=== PATIENT | male | born 1985 | race Caucasian/White ===

== ENCOUNTER 2021-04-22 18:39 | Emergency (ER) | payer SELFPAY ==
[2021-04-22] MEDS ORDERED: Sodium Chloride 0.9% 10 ML Syringe FLUSH PRN (19:15)
--- NOTE | 2021-04-22 19:30 | EDM.PDOC ---
ED HPI GENERAL MEDICAL PROBLEM - General Chief Complaint: General Stated Complaint: STOMACHE Time Seen by Provider: 04/22/21 19:10 Source of Information: Reports: Patient History Limitations: Reports: No Limitations - History of Present Illness INITIAL COMMENTS - FREE TEXT/NARRATIVE: 25-year-old male presents to the emergency room with complaints of emboli because pain for about 24 hours. Pain is been constant he only rates it a 2 out of 10. He has no referral of pain. Reports this more of a pinching type of pain. Not been experiencing any fever or chills no anorexia. No urinary or bowel problems. No nausea vomiting, diarrhea or constipation no complaints. He was concerned that this may be an appendicitis and thought he should come in. Is nontoxic-appearing he is well no acute distress. Onset Date: 04/21/21 Duration: Hour(s): (24), Constant Location: Reports: Abdomen (Umbilicus) Quality: Reports: Sharp (Pinching type pain) Severity: Mild Improves with: Reports: None Worsens with: Reports: None Associated Symptoms: Reports: No Other Symptoms Abdomen Pain Score (Numeric/FACES): 2 - Related Data Allergies Allergy/AdvReac Type Severity Reaction Status Date / Time No Known Drug Allergies Allergy Cannot Verified 04/22/21 19:08 Remember Home Meds: Home Meds . [No Known Home Meds] 04/22/21 [History] Social & Family History - Tobacco Use Tobacco Use Status *Q: Current Every Day Tobacco User Years of Tobacco use: 11 Packs/Tins Daily: 0.5 - Caffeine Use Caffeine Use: Reports: Coffee - Recreational Drug Use Recreational Drug Use: No ED ROS GENERAL - Review of Systems Review Of Systems: See Below Constitutional: Denies: Fever, Chills, Night Sweats, Decreased Appetite HEENT: Reports: No Symptoms Respiratory: Reports: No Symptoms Cardiovascular: Reports: No Symptoms Endocrine: Reports: No Symptoms GI/Abdominal: Reports: Abdominal Pain. Denies: Anorexia, Constipation, Diarrhea, Nausea, Vomiting : Reports: No Symptoms Musculoskeletal: Reports: No Symptoms Skin: Reports: No Symptoms Neurological: Reports: No Symptoms Psychiatric: Reports: No Symptoms Hematologic/Lymphatic: Reports: No Symptoms Immunologic: Reports: No Symptoms ED EXAM, GENERAL - Physical Exam Exam: See Below Exam Limited By: No Limitations General Appearance: Alert, WD/WN, No Apparent Distress Eye Exam: Bilateral Eye: EOMI, PERRL (Pupils are equal round) Ears: Hearing Grossly Normal Nose: Normal Inspection Throat/Mouth: Normal Inspection, Normal Voice Head: Atraumatic, Normocephalic Neck: Normal Inspection, Supple. No: Lymphadenopathy (L), Lymphadenopathy (R) Respiratory/Chest: No Respiratory Distress, Lungs Clear, Normal Breath Sounds, No Accessory Muscle Use Cardiovascular: Regular Rate, Rhythm, No Murmur GI/Abdominal: Normal Bowel Sounds, Soft, Tender (Umbilicus). No: No Organomegaly, No Distention, Distended, Guarding, Rigid Back Exam: Normal Inspection, Full Range of Motion Extremities: Normal Inspection, Normal Range of Motion, Non-Tender, No Pedal Edema Neurological: Alert, Oriented, No Motor/Sensory Deficits Psychiatric: Normal Affect, Normal Mood Skin Exam: Warm, Dry, Intact, Normal Color, No Rash Lymphatic: No Adenopathy Course - Vital Signs Last Recorded V/S: Last Vital Signs Temp 98.7 F 04/22/21 19:02 Pulse 78 04/22/21 19:02 Resp 18 04/22/21 19:02 BP 137/80 04/22/21 19:02 Pulse Ox 98 04/22/21 19:02 - Orders/Labs/Meds Orders: Active Orders 24 hr Category Date Time Status Peripheral IV Care [RC] . DIRECTED Care 04/22/21 19:15 Active Sodium Chloride 0.9% [Normal Saline] 50 ml Med 04/22/21 20:00 Active IV ASDIRECTED Sodium Chloride 0.9% [Saline Flush] Med 04/22/21 19:15 Active 10 ml FLUSH Q8HR PRN Peripheral IV Insertion Adult [OM.PC] Routine Oth 04/22/21 19:15 Ordered Medication Orders Sodium Chloride (Normal Saline) 50 mls @ 200 mls/min IV ASDIRECTED SEBAS Last Admin: 04/22/21 20:13 Dose: 200 mls/min Documented by: KARMA Sodium Chloride (Sodium Chloride 0.9% 10 Ml Syringe) 10 ml FLUSH Q8HR PRN PRN Reason: keep vein open Last Admin: 04/22/21 19:28 Dose: 10 ml Documented by: CHARLI Labs: Laboratory Tests 04/22/21 04/22/21 Range/Units 19:25 19:25 WBC 7.66 (5.00-10.00) 10^3/uL RBC 4.91 (4.50-6.00) 10^6/uL Hgb 15.4 (13.0-17.0) g/dL Hct 45.2 (40.0-52.0) % MCV 92.1 H (82.0-92.0) fL MCH 31.4 H (27.0-31.0) pg MCHC 34.1 (32.0-36.0) g/dL RDW 13.8 (11.5-14.5) % Plt Count 280 (150-400) 10^3/uL MPV 9.2 (7.4-10.4) fL Immature Gran % (Auto) 0.1 (0.0-5.0) % Neut % (Auto) 50.2 (50.0-70.0) % Lymph % (Auto) 41.3 H (20.0-40.0) % [place] % (Auto) 7.4 (2.0-8.0) % Eos % (Auto) 0.9 L (1.0-3.0) % Baso % (Auto) 0.1 (0.0-1.0) % Neut # (Auto) 3.84 (2.50-7.00) 10^3/uL Lymph # (Auto) 3.16 (1.00-4.00) 10^3/uL [place] # (Auto) 0.57 (0.10-0.80) 10^3/uL Eos # (Auto) 0.07 L (0.10-0.30) 10^3/uL Baso # (Auto) 0.01 (0.00-0.10) 10^3/uL Immature Gran # (Auto) 0.01 (0.00-0.50) 10^3/uL Sodium 141 (136-145) mmol/L Potassium 3.7 (3.5-5.1) mmol/L Chloride 103 (98-107) mmol/L Carbon Dioxide 24.5 (21.0-32.0) mmol/L Anion Gap 17.2 H (5-15) mmol/L BUN 20 H (7-18) mg/dL Creatinine 0.95 (0.51-1.17) mg/dL Est Cr Clr Drug Dosing 113.13 mL/min Estimated GFR (MDRD) > 60 mL/min Glucose 90 (70-140) mg/dL Calcium 9.2 (8.7-10.3) mg/dL Total Bilirubin 0.4 (0.2-1.0) mg/dL AST 18 (15-37) U/L ALT 28 (14-63) U/L Alkaline Phosphatase 71 (46-116) U/L Total Protein 7.6 (6.4-8.2) g/dL Albumin 4.41 (3.40-5.00) g/dL Lipase 117 (73-393) U/L Meds: Medications Generic Name Dose Route Start Last Admin Trade Name Freq PRN Reason Stop Dose Admin Sodium Chloride 50 mls @ 200 mls/min 04/22/21 20:00 04/22/21 20:13 Normal Saline IV 200 mls/min ASDIRECTED SEBAS Administration Sodium Chloride 10 ml 04/22/21 19:15 04/22/21 19:28 Sodium Chloride 0.9% 10 Ml Syringe FLUSH 10 ml Q8HR PRN Administration keep vein open Discontinued Medications Generic Name Dose Route Start Last Admin Trade Name Freq PRN Reason Stop Dose Admin Iopamidol 75 ml 04/22/21 19:56 04/22/21 20:13 Iopamidol 755 Mg/Ml 75 Ml Bottle IVPUSH 04/22/21 19:57 75 ml ONETIME ONE Administration - Radiology Interpretation Free Text/Narrative:: CT abdomen pelvis with IV contrast Findings: No evidence of appendicitis. The liver and spleen are unremarkable. Kidneys and adrenals show no abnormality. Aorta pancreas are within normal limits. There is no bowel distention. There is no bowel wall thickening either. There is no free fluid air or free air. There is no adenopathy. The pelvis shows no mass, free fluid, abscess, inflammatory change, or adenopathy. Impression: No acute process. Departure - Departure Time of Disposition: 21:48 Disposition: Home, Self-Care 01 Condition: Good Clinical Impression: Abdominal pain Qualifiers: Abdominal location: periumbilical Qualified Code(s): R10.33 - Periumbilical pain - Discharge Information Instructions: Abdominal Pain, Adult Referrals: PCP,None [Primary Care Provider] - Forms: ED Department Discharge Care Plan Goals: 1. Encourage plenty of hydration water. 2. Tylenol or ibuprofen for any pain or discomfort. 3. Follow up with your primary care in a week if symptoms are not improving return back to the emergency room if your abdominal pain becomes severe onset. 4. Your lab work today looked unremarkable. 5. CT scan is negative for acute abdominal findings no acute appendicitis no cholecystitis. Sepsis Event Note (ED) - Evaluation Sepsis Screening Result: No Definite Risk - Focused Exam Vital Signs: Vital Signs Temp Pulse Resp BP Pulse Ox 04/22/21 19:02 98.7 F 78 18 137/80 98 - My Orders Last 24 Hours: My Active Orders 04/22/21 19:15 Peripheral IV Care [RC] . DIRECTED Sodium Chloride 0.9% [Saline Flush] 10 ml FLUSH Q8HR PRN Peripheral IV Insertion Adult [OM.PC] Routine 04/22/21 20:00 Sodium Chloride 0.9% [Normal Saline] 50 ml IV ASDIRECTED - Assessment/Plan Last 24 Hours: My Active Orders 04/22/21 19:15 Peripheral IV Care [RC] . DIRECTED Sodium Chloride 0.9% [Saline Flush] 10 ml FLUSH Q8HR PRN Peripheral IV Insertion Adult [OM.PC] Routine 04/22/21 20:00 Sodium Chloride 0.9% [Normal Saline] 50 ml IV ASDIRECTED Assessment:: Abdominal pain Plan: 1. Encourage plenty of hydration water. 2. Tylenol or ibuprofen for any pain or discomfort. 3. Follow up with your primary care in a week if symptoms are not improving return back to the emergency room if your abdominal pain becomes severe onset. 4. Your lab work today looked unremarkable. 5. CT scan is negative for acute abdominal findings no acute appendicitis no cholecystitis.
[2021-04-22 19:52] LABS: ANION GAP 17.2 mmol/L (5-15); CHLORIDE,CL 103 mmol/L (98-107); SODIUM,NA 141 mmol/L (136-145)
[2021-04-22] MEDS ORDERED: Iopamidol 755 Mg/ML 75 ML Bottle IVPUSH ONE (19:56)
[2021-04-22] MEDS ORDERED: Sodium Chloride 0.9% 50 ML IV SCH (20:00)
--- NOTE | 2021-04-22 21:46 | CT ---
[id number] CT/CT Abdomen Pelvis W IV EXAM: CT Abdomen Pelvis W IV CLINICAL DATA: ABDOMINAL PAIN COMPARISON: CORRELATION IS MADE WITH APRIL 22, 2021 FINDINGS: There is no evidence of appendicitis The liver and spleen are unremarkable. The kidneys and adrenals show no abnormality. The aorta and pancreas are within normal limits. There is no bowel distention. There is no bowel wall thickening either. There is no free fluid or free air. There is no adenopathy. The pelvis shows no mass, free fluid, abscess, inflammatory change, or adenopathy. IMPRESSION: NO ACUTE PROCESS. Aravind Perez MD 04/22/21 [id number] Thank you for allowing us to participate in the care of your patient.
== END 2021-04-22 21:51 | disposition home or self-care (01) ==
LOC: KA.ED 18:39
DX: R10.33 Periumbilical pain (principal); Z72.0 Tobacco use
CPT/HCPCS: 36415; 74177; 80053; 83690; 85025; 99283; 99284-25; Q9967

== ENCOUNTER 2024-01-11 17:04 | Emergency (ER) | payer OTHER ==
[2024-01-11] MEDS: HYDROmorphone 1 MG/ML Syringe IVPUSH ONE ×2 (17:31→18:18)
[2024-01-11 17:46] VITALS: BP 125/76; PULSE 70
[2024-01-11] MEDS: ceFAZolin 2 GM in Sodium Chloride 0.9% 100 ML IVPUSH ONE (18:10)
[2024-01-12] MEDS: ceFAZolin 2 GM in Sodium Chloride 0.9% 100 ML IVPUSH ONE (16:04)
== END 2024-01-11 18:35 ==
LOC: KA.ED 17:04 → MERGE 17:04 → KA.ED 18:35
DX: S68.111A Complete traumatic metacarpophalangeal amputation of left index finger, initial encounter (principal); W23.1XXA Caught, crushed, jammed, or pinched between stationary objects, initial encounter
CPT/HCPCS: 73140-F1; 96374; 96375; 96376; 99283; 99284-25; J0690; J1170; J3490